=== PATIENT | female | born 1995 | race Caucasian/White ===

== ENCOUNTER → 2016-04-15 | Outpatient (CLI) | payer BC ==
--- NOTE | 2016-04-15 14:00 | DIAGNOSTIC IMAGING REPORT ---
RIGHT LOWER EXTREMITY VENOUS DOPPLER CLINICAL HISTORY: Right calf pain. COMPARISON STUDY: No previous studies for comparison. TECHNIQUE: Sonography of the deep venous system of the right lower extremity was performed. Compression and augmentation were evaluated. FINDINGS: The right common femoral, superficial femoral and popliteal veins were compressible. Augmentation was normal. Flow was shown within the deep calf vessels. Note was made of a subtle 3.7 x 3.6 x 0.9 cm subcutaneous abnormality along the posterior lateral aspect of the right knee at site of bruising. IMPRESSION: 1. No evidence of deep venous thrombus within the right lower extremity. 2. 3.7 x 3.6 x 0.9 cm subcutaneous abnormality of the posterolateral aspect the right knee at site of bruising. This could reflect a small hematoma/contusion. Electronically signed by: Henry Franks M.D. 04/15/2016 1:58 PM Dictated Date/Time: 04/15/2016 1:56 PM
== END | disposition home or self-care (01) ==
LOC: C.ULTR 13:08
PROVIDERS: ATTEND Obstetrics & Gynecology
DX: M79.606 Pain in leg, unspecified (principal); R93.8 Abnormal findings on diagnostic imaging of other specified body structures